=== PATIENT | male | born 1985 | race Caucasian/White ===

== ENCOUNTER 2017-04-08 23:26 | Emergency (ER) | payer OTHER ==
[~2017-04-08] VITALS: Ht 160 cm; Wt 59.2 kg
[~2017-04-08 23:26] MED LIST: ASPI-390 PO; BUPR8MIS SL
[2017-04-08 23:46] VITALS: TEMP 36.6; Ht 160 cm; Wt 59.2 kg
[2017-04-08] MEDS ORDERED: KETOROLAC TROMETHAMINE 60 MG/2 ML VIAL IM STA (23:57)
[2017-04-09] MEDS ORDERED: DEXAMETHASONE SOD INJ 10 MG/ML VIAL IM ONE
[2017-04-09 01:36] VITALS: BP 107/57; PULSE 64; O2SAT 97
[2017-04-09] MEDS ORDERED: CYCL10TA6 PO (01:39)
[2017-04-09] MEDS ORDERED: PRED50TA PO (01:39)
[2017-04-09] MEDS ORDERED: NORCO 5/325MG HOME PACK PO ONE (01:45)
--- NOTE | 2017-04-09 07:15 | DIAGNOSTIC IMAGING REPORT ---
L-SPINE MIN 4 VIEWS ROUTINE CLINICAL HISTORY: Low back pain. COMPARISON: None FINDINGS: Slight rightward curvature of the lumbar spine is likely positional. No fracture or osseous lesion is present. Disc spaces are preserved. Facet joints are intact. IMPRESSION: No significant abnormality of the lumbar spine. Electronically signed by: Ricky Vargas M.D. 04/09/2017 7:14 AM Dictated Date/Time: 04/09/2017 7:13 AM
--- NOTE | 2017-04-10 06:16 | EMERGENCY ROOM VISIT NOTE ---
ED Visit Note First contact with patient: 23:49 CHIEF COMPLAINT: Low back pain HISTORY OF PRESENT ILLNESS: This 31-year-old male patient presents to the emergency department complaining of pain in the low back which began worsening over the past 3 or 4 days. The pain was gradual in onset, is now constant and worse with movement. The patient notes the pain as dull and a 6/10. The patient has taken Advil and Tylenol without relief of the pain. The patient denies any loss of control of their bowel or bladder functions. There has been no leg numbness or weakness, and no change in sensation. No nausea or vomiting or abdominal pain. No chest pain or shortness of breath. The patient has not had prior back injuries. No dysuria or increased urinary frequency. REVIEW OF SYSTEMS: A review of systems was performed with positives and pertinent negatives listed in the history of present illness. All other systems were reviewed and are negative. ALLERGIES: No known allergies MEDICATIONS: Suboxone PMH: See EMR SOCIAL HISTORY: Lives locally PHYSICAL EXAM: VITALS: Vitals are noted on the nurse's note and reviewed by myself. Vital signs stable. GENERAL: White male, in no acute distress, nondiaphoretic, well-developed well- nourished. SKIN: The skin was without rashes, erythema, edema, or bruising. Capillary refill less than 2 seconds. NECK: Supple without nuchal rigidity. No cervical spine tenderness. No paraspinous muscle tenderness. HEART: Regular rate and rhythm without murmurs gallops or rubs. LUNGS: Clear to auscultation bilaterally without wheezes, rales or rhonchi. ABDOMEN: Positive bowel sounds x 4. Normal tympanic percussion. Soft, nontender, without masses or organomegaly. Ocampo sign negative. MUSCULOSKELETAL: No muscle atrophy, erythema, or edema noted of the back. There is mild tenderness over the lumbar spinous processes. There is no tenderness over the paraspinous muscles. There is no tenderness over the thoracic spine or paraspinous muscles. There are no muscle spasms present. The patient is slow to move around with maximum tenderness with flexion. Negative straight leg raise test. NEURO: Patient was alert and oriented to person place and time. Normal sensation to light and sharp touch. Deep tendon reflexes 2+ in the lower extremities. Dorsalis pedis pulse 2+ bilaterally. Strength 5/5 and equal in the bilateral lower extremities. L-SPINE MIN 4 VIEWS ROUTINE CLINICAL HISTORY: Low back pain. COMPARISON: None FINDINGS: Slight rightward curvature of the lumbar spine is likely positional. No fracture or osseous lesion is present. Disc spaces are preserved. Facet joints are intact. IMPRESSION: No significant abnormality of the lumbar spine. EMERGENCY DEPARTMENT COURSE: Physical exam and history were performed. Nursing notes and EMR were reviewed. The patient appears to have low back pain slowly worsening over the past several days. He does not have significant weakness or neurologic findings on exam. No evidence of infection. X-ray was obtained and does not show significant findings. He was given Toradol and Decadron here in the department. I will provide him a home pack of Vicodin for pain control. The patient is to follow with his primary care physician for further care and management. He is otherwise invited back to the ER with any new, worsening, or concerning symptoms. Problem List Medical Problems: (1) Headache Status: Resolved Current/Historical Medications Scheduled Buprenorphine Hcl-Naloxone Hcl (Suboxone 8-2 Mg), 2.5 DOSE SL DAILY Cyclobenzaprine Hcl (Flexeril), 10 MG PO TID Prednisone (Prednisone), 50 MG PO DAILY Scheduled PRN Crtgmro-Lyjrpjnwrwyos-Vykpnegs (Excedrin Migraine), 1-2 TABS PO QID PRN for Headache Allergies Coded Allergies: No Known Allergies (Verified , 04/09/17) Vital Signs Date Time Temp Pulse Resp B/P (MAP) Pulse Ox O2 Delivery O2 Flow Rate FiO2 04/09/17 01:36 64 18 107/57 97 Room Air 04/08/17 23:46 36.6 82 20 102/67 98 Room Air Medications Administered Medications (Trade) Dose Ordered Sig/Wilmar Route Start Time Stop Time Status Last Admin Dose Admin Dexamethasone Sodium Phosphate (Decadron Inj) 10 mg NOW ONCE IM 04/09/17 00:00 04/09/17 00:01 DC 04/09/17 00:16 10 MG Ketorolac Tromethamine (Toradol Inj) 60 mg NOW STAT IM 04/08/17 23:57 04/08/17 23:58 DC 04/09/17 00:15 60 MG Acetaminophen/ Hydrocodone Bitart ([place] 5/325mg Home Pack) 1 homepack UD ONCE PO 04/09/17 01:45 04/09/17 01:46 DC 04/09/17 01:52 1 HOMEPACK Departure Information Impression Primary Impression: Low back pain Dispostion Home / Self-Care Condition FAIR Prescriptions Cyclobenzaprine Hcl (FLEXERIL) 10 Mg Tab 10 MG PO TID for 5 Days, #15 TAB Prov: Fox Cantu PA-C 04/09/17 Prednisone (Prednisone) 50 Mg Tab 50 MG PO DAILY for 4 Days, #4 TAB Prov: Fox Cantu PA-C 04/09/17 Forms HOME CARE DOCUMENTATION FORM, IMPORTANT VISIT INFORMATION Patient Instructions My [facility] Additional Instructions You were seen and evaluated today on an emergency basis only. This is not a substitute for, or an effort to provide, complete comprehensive medical care. It is not possible to recognize and treat all injuries or illnesses in a single emergency department visit. For this reason it is recommended that you followup with your primary care physician next week for recheck and condition. For baseline pain relief you may alternate ibuprofen and acetaminophen every 4 hours for pain control. Take 600 mg ibuprofen (Advil) and then 4 hours later take 1000 mg acetaminophen (Tylenol). Do not take more than 3000 mg acetaminophen in a single day. [place] (hydrocodone/acetaminophen) 5/325 mg (homepack)every 6 hours as needed for worsening breakthrough pain. Do not drink or drive on [place]. This medication will likely make you tired. Do not take [place] and Tylenol at the same time as both contain acetaminophen. [place] may cause constipation. You may wish to take an [id number] stool softener like Colace if this occurs. Take prednisone 50 mg daily for the next 4 days. Flexeril 1 tablet up to 3 times a day as needed for muscle spasms. No driving, working, or alcohol use with Flexeril. You are welcome to return to the emergency department anytime with new, worsening, or concerning symptoms.
== END 2017-04-09 01:56 | disposition home or self-care (01) ==
LOC: C.EDB 23:28 → C.EDC 04-09 01:56
DX: M54.5 Low back pain (principal); Z79.899 Other long term (current) drug therapy